=== PATIENT | female | born 1935 | race Caucasian/White ===

== ENCOUNTER 2017-11-21 16:08 | Inpatient (IN) | payer MEDICARE, OTHER ==
[~2017-11-21] VITALS: Ht 152.4 cm; Wt 61.2 kg
[2017-11-21] MEDS ORDERED: METO25TA6 PO (16:25)
[2017-11-21] MEDS ORDERED: DEXL60CA3 PO (16:25)
[2017-11-21] MEDS ORDERED: ATOR10TA PO (16:25)
[2017-11-21] MEDS ORDERED: ERGO500040 PO (16:25)
[2017-11-21] MEDS ORDERED: EXFORGE PO (16:25)
[2017-11-21] MEDS ORDERED: APIX5TAB4 PO (16:25)
[2017-11-21 16:41] LABS: BASOPHILS # (AUTO) 0.2 K/uL (0.0-8.0); BASOPHILS % (AUTO) 1.5 % (0.0-2.0); EOSINOPHILS # (AUTO) 0.2 K/uL (0.0-0.7); EOSINOPHILS % (AUTO) 1.2 % (0.0-7.0); HEMATOCRIT 48.7 % (31.2-41.9); HEMOGLOBIN 16.3 g/dL (10.9-14.3); LYMPHOCYTES # (AUTO) 2.8 K/uL (20.0-40.0); LYMPHOCYTES % (AUTO) 21.6 % (20.5-51.5); MEAN CORPUSCULAR HEMOGLOBIN 28.9 uug (24.7-32.8); MEAN CORPUSCULAR HGB CONC 33 g/dL (32.3-35.6); MEAN CORPUSCULAR VOLUME 86.4 fL (75.5-95.3); MONOCYTES # (AUTO) 0.9 K/uL (2.0-10.0); MONOCYTES % (AUTO) 6.6 % (0.0-11.0); NEUTROPHILS % (AUTO) 69.1 % (38.5-71.5); PLATELET COUNT (AUTO) 330 K/uL (179-408); RED BLOOD CELL COUNT(AUTO) 5.64 MIL/uL (3.63-4.92)
[2017-11-21] MEDS ORDERED: METOPROLOL TARTRATE 5 MG/5 ML VIAL IVP ONE (16:45)
[2017-11-21 16:50] LABS: CARBON DIOXIDE 30 mmol/L (21-32); CHLORIDE 100 mmol/L (98-107); CREATININE 1.1 mg/dL (0.6-1.3); GLUCOSE 143 mg/dL (74-106); POTASSIUM 4.3 mmol/L (3.5-5.1); UREA NITROGEN, BLOOD 21 mg/dL (7-18)
--- NOTE | 2017-11-21 17:00 | NUR ---
Aron Johnson NP at bedside speaking with pt and family. Pt to be admitted to tele.
[2017-11-21] MEDS ORDERED: METOPROLOL SUCCINATE XL 25 MG TAB.SR.24H PO ONE ×3 (17:15→21:30)
[2017-11-21] MEDS ORDERED: HYDROCODONE/APAP 5-325MG TABLET PO PRN (17:30)
[2017-11-21] MEDS ORDERED: ONDANSETRON 4 MG/2 ML VIAL IV PRN (17:30)
[2017-11-21] MEDS ORDERED: ACETAMINOPHEN 325 MG TABLET PO PRN (17:30)
[2017-11-21] MEDS ORDERED: TEMAZEPAM 15 MG CAPSULE PO PRN (17:30)
[2017-11-21] MEDS ORDERED: MORPHINE SULFATE 2 MG/1 ML DISP.SYRIN IV PRN (17:30)
--- NOTE | 2017-11-21 17:35 | NUR ---
Lopressor 5mg IV was held per Aron,HANDER IN order.
--- NOTE | 2017-11-21 17:55 | NUR ---
SBAR report given to MIHAI Hart via telephone.
[2017-11-21] MEDS ORDERED: IV NS 1000 ML 1,000 ML IV PRN (18:00)
[2017-11-21] MEDS ORDERED: FUROSEMIDE 40 MG/4 ML VIAL ONE (18:13)
[2017-11-21] MEDS ORDERED: FUROSEMIDE 20 MG/2 ML VIAL IV ONE (18:15)
--- NOTE | 2017-11-21 18:20 | NUR ---
Pt trans to tele floor, NAD noted.
--- NOTE | 2017-11-21 18:30 | NUR ---
PT ARRIVED TO UNIT ON GURNEY, PT HAD 1 BM UPON ARRIVAL, AOX3, 2L NC SAT 97%, AMBULATORY WITH OUT ASSISTANCE, HAS A HISTORY OF BILATERAL TOTAL KNEE REPLACEMENTS ONE IN 2001 AND THE OTHER IN 2017 AT [facility]. PT SKIN INTACT, TELE AFIB RVR, CONTINUE TO MONITOR PT.
--- NOTE | 2017-11-21 19:45 | NUR ---
Nursing Note: Pt resting in bed with son at beside. Respirations even and unlabored on O2 via NC at 2lpm. Pt verbalized that SOB controlled and that she is now experiencing abdominal pain. VS obtained and noted with 104/51 HR 140bpm(via tele monitor). Bowel sounds present and active in all 4 quadrants. Abdomen soft and non distended. No complaints of chest pain or change in LOC. CLOTH FINISHING RANGE OPERATOR Alex made aware, awaiting new orders. Pt R FA 22 G hep lock remain intact and patent. Full body assessment done. Skin integrity remains intact. Pt noted with bilateral lower extremity discoloration. No complaints of pain at this time. Pt oriented to room, call light within reach. Pt ambulatory and shown restroom. Pt encouraged to rest in bed. Bed in low and locked position. Alarm engaged. Frequent visual check. Will continue to monitor.
[2017-11-21] MEDS: ATORVASTATIN 10 MG TABLET PO SCH (20:43)
[2017-11-21] MEDS: PATIENT'S OWN MED PO SCH (20:43)
[2017-11-21 21:15] VITALS: BP 104/51
[2017-11-21] MEDS ORDERED: LORAZEPAM 2 MG/1 ML VIAL IV PRN (21:45)
--- NOTE | 2017-11-21 22:00 | NUR ---
Nursing Note: Pt seen and evaluated by MARYSE Johnson. New order for one time dose of Metoprolol 25mg extended release, give now, noted and carried out. New order to obtain CT of Abdomen and Pelvis w/o contrast also carried out. Pt appears to be in no acute distress. Pt given a snack to eat. Pt reported an episode of diarrhea. No complaints of abdominal pain at this time. No SOB noted with O2 at 2lpm. Bed in low and locked position at all times. Call light in reach at all times. Frequent visual checks done. Pt continues to display A-fib RVR on statistical geneticist. Will continue to monitor.
[2017-11-22 01:03] VITALS: BP 105/54
[2017-11-22] MEDS: TEMAZEPAM 7.5 MG CAPSULE PO PRN ×2 (01:43→23:30)
--- NOTE | 2017-11-22 02:45 | NUR ---
Nursing Note: Pt requested medication to assist with sleep. Noted pt sleeping soundly. Continue to remain A-fib RVR with a rate of 100bpm. O2 saturation at this time is 97% on O2 at 2lpm. Bed continues to remain in low and locked position. Call light in reach at all times. Will continue to monitor.
[2017-11-22 04:11] VITALS: BP 105/59
[2017-11-22] MEDS: PANTOPRAZOLE SODIUM 40 MG TABLET.DR PO SCH (06:24)
[2017-11-22 06:45] LABS: BASOPHILS % (AUTO) 0.4 % (0.0-2.0); CARBON DIOXIDE 36 mmol/L (21-32); CHLORIDE 101 mmol/L (98-107); CHOLESTEROL 160 mg/dL (<200); CREATININE 1.3 mg/dL (0.6-1.3); EOSINOPHILS # (AUTO) 0.2 K/uL (0.0-0.7); EOSINOPHILS % (AUTO) 1.8 % (0.0-7.0); GLUCOSE 136 mg/dL (74-106); HDL CHOLESTEROL 44 mg/dL (40-60); HEMATOCRIT 45.1 % (31.2-41.9); HEMOGLOBIN 14.8 g/dL (10.9-14.3); LYMPHOCYTES # (AUTO) 2.3 K/uL (20.0-40.0); LYMPHOCYTES % (AUTO) 23.9 % (20.5-51.5); MAGNESIUM 2.1 mg/dL (1.8-2.4); MEAN CORPUSCULAR HEMOGLOBIN 28.8 uug (24.7-32.8); MEAN CORPUSCULAR HGB CONC 33 g/dL (32.3-35.6); MEAN CORPUSCULAR VOLUME 87.8 fL (75.5-95.3); MONOCYTES # (AUTO) 0.7 K/uL (2.0-10.0); MONOCYTES % (AUTO) 7.1 % (0.0-11.0); NEUTROPHILS # (AUTO) 6.3 K/uL (1.8-8.9); NEUTROPHILS % (AUTO) 66.8 % (38.5-71.5); PHOSPHOROUS 4.5 mg/dL (2.5-4.9); PLATELET COUNT (AUTO) 314 K/uL (179-408); POTASSIUM 4.5 mmol/L (3.5-5.1); RED BLOOD CELL COUNT(AUTO) 5.14 MIL/uL (3.63-4.92); TRIGLYCERIDES 145 MG/DL (30-150); UREA NITROGEN, BLOOD 23 mg/dL (7-18)
[2017-11-22 06:53] LABS: WHITE BLOOD COUNT (AUTO) 9.5 K/uL (3.8-11.8)
[2017-11-22 07:31] LABS: *BILIRUBIN,URIN NEGATIVE (NEGATIVE); *BLOOD, URINE NEGATIVE (NEGATIVE); *CLARITY,URINE CLEAR (CLEAR); *COLOR,URINE YELLOW (YELLOW); *KETONES,URINE NEGATIVE (NEGATIVE); *PROTEIN,URINE NEGATIVE (NEGATIVE); *UROBILINOGEN,URINE 0.2 E.U./dl (NORMAL); LEUKOCYTE ESTERASE ,URINE NEGATIVE (NEGATIVE); NITRITE, URINE NEGATIVE (NEGATIVE); PH,URINE 5.5 (5.0-8.0); UGLUCOSE NEGATIVE (NEGATIVE)
[2017-11-22 07:48] LABS: RBC,URINE 0-3 /HPF (0-3)
[2017-11-22 07:49] LABS: BACTERIA,URINE NONE SEEN /HPF (NONE SEEN); MUCUS,URINE MODERATE /LPF (0-FEW); SQUAMOUS EPITHELIAL CELL,UR FEW /HPF (NONE SEEN)
[2017-11-22] MEDS: PATIENT'S OWN MED PO SCH ×2 (08:00→16:31)
[2017-11-22] MEDS: METOPROLOL SUCCINATE XL 25 MG TAB.SR.24H PO SCH (08:01)
[2017-11-22] MEDS: AMLODIPINE 5 MG TABLET PO SCH (08:02)
[2017-11-22] MEDS ORDERED: ASPIRIN 81 MG TAB.CHEW PO SCH (09:00)
[2017-11-22] MEDS ORDERED: METOPROLOL SUCCINATE XL 25 MG TAB.SR.24H PO SCH (09:00)
[2017-11-22] MEDS ORDERED: METOPROLOL TARTRATE 25 MG TABLET PO SCH (09:00)
[2017-11-22] MEDS ORDERED: ERGOCALCIFEROL 50,000 UNIT CAPSULE PO SCH (09:00)
[2017-11-22] MEDS ORDERED: LOSARTAN POTASSIUM 50 MG TABLET PO SCH (09:00)
[2017-11-22] MEDS ORDERED: DEXTROSE 50% 50 ML DISP.SYRIN IV PRN (10:15)
[2017-11-22 11:31] VITALS: BP 91/58
[2017-11-22] MEDS: BLOOD SUGAR DIAGNOSTIC 1 EACH STRIP VI SCH ×3 (11:47→20:28)
[2017-11-22] MEDS: INSULIN REGULAR, HUMAN 300 UNIT/3 ML VIAL SQ PRN ×2 (12:10→20:34)
[2017-11-22 14:57] VITALS: BP 100/58
[2017-11-22 17:52] LABS: *BILIRUBIN,URIN NEGATIVE (NEGATIVE); *BLOOD, URINE Trace-intact (NEGATIVE); *CLARITY,URINE CLOUDY (CLEAR); *COLOR,URINE YELLOW (YELLOW); *KETONES,URINE NEGATIVE (NEGATIVE); *PROTEIN,URINE NEGATIVE (NEGATIVE); *UROBILINOGEN,URINE 0.2 E.U./dl (NORMAL); LEUKOCYTE ESTERASE ,URINE 1+ (NEGATIVE); NITRITE, URINE NEGATIVE (NEGATIVE); PH,URINE 5.5 (5.0-8.0); UGLUCOSE NEGATIVE (NEGATIVE)
[2017-11-22 18:03] LABS: *CREATININE,URINE 249.9 mg/dL (30-125); BACTERIA,URINE FEW /HPF (NONE SEEN); RBC,URINE 0-3 /HPF (0-3); SQUAMOUS EPITHELIAL CELL,UR FEW /HPF (NONE SEEN); URINE AMORPHOUS URATE MODERATE /HPF
--- NOTE | 2017-11-22 18:32 | NUR ---
PT OBSERVED TALKING WITH VISITOR AT THE BEDSIDE. PT SHOWS NO SIGNS OF ACUTE DISTRESS. PT IS MEDICATION COMPLIANT, AMBULATORY, AOX3, SON WOULD LIKE TO TALK TO MEDICAL LIBRARY ASSISTANT. MD NOTIFIED. CONTINUE TO MONITOR PT.
[2017-11-22 19:52] VITALS: BP 102/52
[2017-11-22] MEDS: ATORVASTATIN 10 MG TABLET PO SCH (20:27)
[2017-11-22] MEDS: DOCUSATE SODIUM 100 MG CAPSULE PO SCH (20:28)
--- NOTE | 2017-11-22 21:00 | NUR ---
Nursing Note: Pt resting comfortably in bed. Noted to show Sinus Rhythm at a rate of 78 on personnel monitor. Explained on medication indications to patient. All due medications administered as ordered with no adverse reactions noted. Pt awake alert orient watching TV. No complaints of pain or discomfort noted at this time. Bed in low and locked position. Call light in reach all times will continue to monitor.
[2017-11-23 00:29] VITALS: BP 103/44
--- NOTE | 2017-11-23 01:00 | NUR ---
Nursing Note: Pt resting comfortably in bed. Pt requested medication to assist with sleep earlier. Medication administered by Staff nurse. Patient appears to be sleeping soundly now. Noted to show Sinus Rhythm at a rate of 78 on advisor advocate angel co founder. Bed in low and locked position. Call light in reach. Will continue to monitor.
--- NOTE | 2017-11-23 03:57 | NUR ---
Nursing Note: Pt awake alert oriented. Respirations even and unlabored. Lung sounds clear on auscultation. Pt resting comfortably in bed. Noted to show Sinus Rhythm at a rate of 70 on alarm security or surveillance monitor. No complaints of pain, discomfort or SOB at this time. Bed in low and locked position. Call light in reach. Will continue to monitor.
[2017-11-23 05:51] VITALS: BP 105/53
[2017-11-23] MEDS: PANTOPRAZOLE SODIUM 40 MG TABLET.DR PO SCH (06:33)
[2017-11-23] MEDS: BLOOD SUGAR DIAGNOSTIC 1 EACH STRIP VI SCH ×2 (06:35→11:23)
[2017-11-23 06:47] LABS: BASOPHILS % (AUTO) 0.6 % (0.0-2.0); EOSINOPHILS # (AUTO) 0.3 K/uL (0.0-0.7); EOSINOPHILS % (AUTO) 4.2 % (0.0-7.0); HEMATOCRIT 41.5 % (31.2-41.9); HEMOGLOBIN 13.7 g/dL (10.9-14.3); LYMPHOCYTES # (AUTO) 2.3 K/uL (20.0-40.0); LYMPHOCYTES % (AUTO) 28.1 % (20.5-51.5); MEAN CORPUSCULAR HEMOGLOBIN 28.8 uug (24.7-32.8); MEAN CORPUSCULAR HGB CONC 33 g/dL (32.3-35.6); MEAN CORPUSCULAR VOLUME 87.1 fL (75.5-95.3); MONOCYTES # (AUTO) 0.8 K/uL (2.0-10.0); MONOCYTES % (AUTO) 9.3 % (0.0-11.0); NEUTROPHILS # (AUTO) 4.7 K/uL (1.8-8.9); NEUTROPHILS % (AUTO) 57.8 % (38.5-71.5); PLATELET COUNT (AUTO) 264 K/uL (179-408); RED BLOOD CELL COUNT(AUTO) 4.76 MIL/uL (3.63-4.92); WHITE BLOOD COUNT (AUTO) 8.1 K/uL (3.8-11.8)
[2017-11-23 07:01] LABS: ALANINE AMINOTRANSFERASE 26 U/L (14-59); ALKALINE PHOSPHATASE 50 U/L (50-136); ASPARTATE AMINOTRANSFERASE 15 U/L (15-37); BILIRUBIN,TOTAL 0.9 mg/dL (0.2-1.0); CARBON DIOXIDE 33 mmol/L (21-32); CHLORIDE 101 mmol/L (98-107); CREATINE KINASE, TOTAL 25 U/L (26-192); CREATININE 1.2 mg/dL (0.6-1.3); GLUCOSE 114 mg/dL (74-106); MAGNESIUM 1.9 mg/dL (1.8-2.4); POTASSIUM 4.2 mmol/L (3.5-5.1); TOTAL PROTEIN, SERUM 5.8 g/dL (6.4-8.2); UREA NITROGEN, BLOOD 29 mg/dL (7-18)
[2017-11-23] MEDS: DOCUSATE SODIUM 100 MG CAPSULE PO SCH (08:51)
[2017-11-23] MEDS: PATIENT'S OWN MED PO SCH (08:52)
[2017-11-23] MEDS: AMLODIPINE 5 MG TABLET PO SCH (08:58)
[2017-11-23] MEDS: METOPROLOL SUCCINATE XL 25 MG TAB.SR.24H PO SCH (08:58)
[2017-11-23] MEDS ORDERED: MIRALAX 17 GM POWD.PACK PO ONE (11:15)
[2017-11-23] MEDS: INSULIN REGULAR, HUMAN 300 UNIT/3 ML VIAL SQ PRN (11:27)
[2017-11-23 11:41] VITALS: BP 105/51
[2017-11-23] MEDS ORDERED: CEFTRIAXONE 1 G in IV DEXTROSE 5% 50 ML IV SCH (12:00)
[2017-11-23] MEDS ORDERED: CIPROFLOXACIN IV 400 MG in PREMIXED 1 EACH IV SCH (14:00)
[2017-11-23] MEDS ORDERED: INSU100V28 SQ (14:30)
[2017-11-23] MEDS ORDERED: Blood Sugar Diagnostic VI (14:30)
[2017-11-23] MEDS ORDERED: METO-356 PO (14:30)
[2017-11-23 14:35] LABS: *BILIRUBIN,URIN NEGATIVE (NEGATIVE); *BLOOD, URINE NEGATIVE (NEGATIVE); *CLARITY,URINE CLEAR (CLEAR); *COLOR,URINE YELLOW (YELLOW); *KETONES,URINE NEGATIVE (NEGATIVE); *PROTEIN,URINE NEGATIVE (NEGATIVE); *UROBILINOGEN,URINE 0.2 E.U./dl (NORMAL); LEUKOCYTE ESTERASE ,URINE TRACE (NEGATIVE); NITRITE, URINE NEGATIVE (NEGATIVE); PH,URINE 5.5 (5.0-8.0); UGLUCOSE NEGATIVE (NEGATIVE)
[2017-11-23 14:48] LABS: BACTERIA,URINE MANY /HPF (NONE SEEN); RBC,URINE 0-3 /HPF (0-3); SQUAMOUS EPITHELIAL CELL,UR FEW /HPF (NONE SEEN)
--- NOTE | 2017-11-23 15:20 | NUR ---
Pt discharged home with family. Discharge instructions provided and discussed with the pt and family. Meds reconciled by MARYSE Coronel and reviewed with the pt and family. Pt and family verbalized understanding of discharge instructions and medications. Belongings sheet reviewed and signed. PIV removed. Pt stable and nad noted upon discharge.
[2017-11-24 09:07] LABS: ALBUMIN 2.7 g/dL (2.9-4.4); ALPHA-1-GLOBULIN 0.2 g/dL (0.0-0.4); BETA GLOBULIN 0.9 g/dL (0.7-1.3); GAMMA GLOBULIN 0.5 g/dL (0.4-1.8); GLOBULIN, TOTAL 2.6 g/dL (2.2-3.9); M-SPIKE Not Observed g/dL (Not Observed)
== END 2017-11-23 15:20 | disposition home or self-care (01) | DRG 291 ==
LOC: ER 16:13 → TELE 18:12
PROVIDERS: ADMIT Nurse Practitioner Acute Care; ATTEND Nurse Practitioner Acute Care
DX: I11.0 Hypertensive heart disease with heart failure (principal); N17.0 Acute kidney failure with tubular necrosis; D68.69 Other thrombophilia; E44.0 Moderate protein-calorie malnutrition; N39.0 Urinary tract infection, site not specified; I50.33 Acute on chronic diastolic (congestive) heart failure; I48.0 Paroxysmal atrial fibrillation; Z79.01 Long term (current) use of anticoagulants; K21.9 Gastro-esophageal reflux disease without esophagitis; Z90.49 Acquired absence of other specified parts of digestive tract; Z96.653 Presence of artificial knee joint, bilateral; E78.5 Hyperlipidemia, unspecified; E86.0 Dehydration; Z86.711 Personal history of pulmonary embolism; Z88.0 Allergy status to penicillin; N20.0 Calculus of kidney; E66.9 Obesity, unspecified; Z68.26 Body mass index [BMI] 26.0-26.9, adult; K57.90 Diverticulosis of intestine, part unspecified, without perforation or abscess without bleeding; K59.00 Constipation, unspecified; M25.78 Osteophyte, vertebrae; M48.07 Spinal stenosis, lumbosacral region; E11.65 Type 2 diabetes mellitus with hyperglycemia; Z85.3 Personal history of malignant neoplasm of breast; M19.90 Unspecified osteoarthritis, unspecified site; I70.0 Atherosclerosis of aorta
CPT/HCPCS: 36415; 70030-TC; 71045; 83735; 83970; 84100; 84155; 84156; 84165; 84300; 85025; 85730; 87086; 93005; 93307; A4663; J0696; J0744; J1815; J1940; J7030; J7060